=== PATIENT | female | born 1990 | race Caucasian/White ===

== ENCOUNTER 2017-04-07 19:25 | Emergency (ER) | payer OTHER ==
[2017-04-07] MEDS ORDERED: KETOROLAC TROMETHAMINE 60 MG/2 ML VIAL IM ONE ×2 (20:07→20:11)
--- OUTSIDE RECORDS SUMMARY | 2017-04-07 20:10 | XMS REPORT | Continuity of Care Document ---
:1990 Author Organization [facility] ([facility]) Address [address] [place] [address] Phone [phone] Care Team Providers Name Role Phone Alex Flores Primary Care Provider [phone] Source Comments This disclosure is being made pursuant to the Care Everywhere program, applicable federal and state laws, and may not contain all informaitonavailable regarding this patient.[facility] ([facility]) Active Allergies and Adverse Reactions Not on File Current Medications Not on file Active Problems Not on file Social History Tobacco Use Types Packs/Day Years Used Date Never Assessed Plan of Care Health Maintenance Due Date Last Done Comments Hepatitis B Vaccine (1 of 3 - Primary Series) 1989 Tdap Vaccine 2000 Cervical Cancer Screening 2007 Lipid Disorder Screening 2007 MMR Vaccine 2007 Td Vaccine 2007 Varicella Vaccine (1 of 2 - Adult - No Evidence of 2007 Immunity) Influenza Vaccine: Seasonal (#1) 06/23/2016 Results from Last 3 Months Not on file
--- NOTE | 2017-04-07 20:25 | ERNOTE ---
Back Pain ER HPI Date of Service: 04/07/17 Time Seen by Provider: 04/07/17 19:58 Source: patient Exam Limitations: no limitations Immunizations: IMMUNIZATION HX Immunizations Up to Date Yes History of Influenza Vaccine Yes Hx Pneumococcal Vaccination No Allergies/Adverse Reactions: Allergies No Known Allergies Allergy (Verified 04/07/17 19:37) Home Medications: HOME MEDICATIONS Cyclobenzaprine HCl [Flexeril] 10 mg PO HS PRN #10 tab 04/07/17 [Last Taken Unknown] Naproxen [Naprosyn] 500 mg PO BID PRN #60 tab 04/07/17 [Last Taken Unknown] Narrative: Pt. comes in with c/o back pain since yesterday when she felt a crunch lifting her window. Pt. denies any SOB, CP, numbness, tingling, fever, rhinorrhea, cough or recent illness. Pt. states that she was able to work today with only occasional intermittent mild pain when moving or bending or twisting but has had some aching constant since getting off of work two hours ago. Review of Systems - Review of Systems Constitutional: Present: no symptoms reported. Absent: recent illness, fever, chills, weakness, fatigue EYE: Present: no symptoms reported ENT: Present: no symptoms reported. Absent: nose pain, nose congestion, nasal drainage, sore throat Respiratory: Present: no symptoms reported. Absent: shortness of breath, cough , wheezing Cardiology: Present: no symptoms reported. Absent: chest pain, palpitations, edema Gastrointestinal/Abdominal: Present: no symptoms reported. Absent: nausea, vomiting, diarrhea, abdominal pain Genitourinary: Present: no symptoms reported. Absent: frequency, decreased urinary output Musculoskeletal: Present: back pain Skin: Present: no symptoms reported Neurological: Present: no symptoms reported. Absent: headache, dizziness/light- headedness, numbness, tingling All Other Systems: All systems neg except as marked - Patient's Past Medical History Patient History - Medical: Obesity Patient History - Cardiac/Respiratory: No pertinent hx Patient History - Cancer: No Hx of Cancer Patient History - Surgical Procedures: Appendectomy, Other Patient History - Other: None LMP (females 10-50): 1 month - Family History Mother Family History - Cardiac/Respiratory: No pertinent hx Father Family History - Cardiac/Respiratory: Hypertension Grandmother-Paternal Family History - Medical: Diabetes Type 2 Family History - Cardiac/Respiratory: No pertinent hx Grandfather-Paternal Family History - Medical: Diabetes Type 2 Family History - Cardiac/Respiratory: No pertinent hx - Social History Living Situations: parents Abuse History: No History of abuse Psych History: No pertinent hx Does anyone smoke in the home?: No Smoking Status: Never smoker Do you dip or chew tobacco: No Alcohol Use: none Drug Use: none - Immunizations Immunizations Up to Date: Yes Hx Pneumococcal Vaccination: No History of Influenza Vaccine: Yes Physical Exam - Physical Exam General Appearance: Present: wd/wn, alert, no apparent distress Eye Exam: Normal inspection: bilateral, PERRL: bilateral, EOMI: bilateral Ears, Nose, Throat: Present: normal ENT inspection, normal pharynx Neck: Present: normal inspection, nontender. Absent: lymphadenopathy (R), lymphadenopathy (L) Respiratory: Present: no respiratory distress, normal breath sounds, no accessory muscle use, chest nontender, lungs clear Cardiovascular/Chest: Present: regular rate, rhythm, no murmur, normal peripheral pulses Gastrointestinal/Abdominal: Present: normal bowel sounds, nontender, nondistended, soft, no organomegaly Back Exam: Present: normal inspection, normal range of motion, no CVA tenderness , no vertebral tenderness Extremity Exam: Present: normal inspection, non-tender, normal range of motion, no edema Neurological Exam: Present: alert, oriented, normal mood/affect, no motor/ sensory deficits Skin Exam: Present: normal color, warm/dry. Absent: pallor, skin rash ED Progress - Vital Signs Patient's Vital Signs:: I have reviewed the patient's vital signs. Vital Signs: Vital Signs 04/07/17 19:31 Temperature 36.8 C Pulse Rate 107 H Respiratory 18 Rate Blood Pressure 149/87 O2 Sat by Pulse 97 Oximetry - X-Ray X-Ray #1 X-Ray: thoracic Interpretation: Reviewed by me X-ray Comments: no acute ossious abnormality - Progress/Reassessment Chief Complaint: Back Pain Departure Clinical Impression: Strain of thoracic spine Qualifiers: Encounter type: initial encounter Qualified Code(s): S29.019A - Strain of muscle and tendon of unspecified wall of thorax, initial encounter - Departure Disposition: Home self-care Condition: Good Instructions: Thoracic Strain, [id number] Additional Instructions: Please follow up with primary provider in 2-3 days if no improvement Prescriptions: Cyclobenzaprine HCl [Flexeril] 10 mg PO HS PRN #10 tab PRN Reason: MUSCLE SPASMS Naproxen [Naprosyn] 500 mg PO BID PRN #60 tab PRN Reason: Pain
[2017-04-07] MEDS ORDERED: CYCLOBENZAPRINE HCL 10 MG TABLET PO ONE (21:08)
[2017-04-07] MEDS ORDERED: CYCLOBENZAPRINE HCL 10 MG TABLET ONE (21:08)
[2017-04-07 21:16] VITALS: BP 144/86
== END 2017-04-07 21:10 | disposition home or self-care (01) ==
LOC: ER 19:25
DX: S29.019A Strain of muscle and tendon of unspecified wall of thorax, initial encounter (principal); X50.9XXA Other and unspecified overexertion or strenuous movements or postures, initial encounter; Y93.89 Activity, other specified; Y92.9 Unspecified place or not applicable